=== PATIENT | female | born 1970 | race American Indian/Alaskan Native ===

== ENCOUNTER 2021-04-26 15:40 | Emergency (ER) | payer BC ==
[2021-04-26] MEDS ORDERED: MORPHINE 4 MG/1 ML INJ IV ONE (15:56)
[2021-04-26] MEDS ORDERED: SODIUM CHLORIDE 0.9% 1000 ML 1,000 ML IV ONE (15:56)
[2021-04-26] MEDS ORDERED: ONDANSETRON 4 MG/2 ML INJ IV ONE (15:56)
[2021-04-26 16:43] LABS: Basophils % (Auto) 0.5 % (0.0-1.8); Eosinophils % (Auto) 0.1 % (0.0-4.3); Hematocrit 45.9 % (30.3-42.9); Hemoglobin 15.3 gm/dl (10.1-14.3); Lymphocytes % (Auto) 14.5 % (13.4-35.0); Mean Corpuscular HGB Conc 33 % (30-34); Mean Corpuscular Volume 85 fl (79-97); Monocytes # (Auto) 0.4 K/mm3 (0.0-0.8); Monocytes % (Auto) 6.3 % (0.0-7.3); Platelet Count 267 K/mm3 (140-440); Red Blood Count 5.37 M/mm3 (3.65-5.03); Red Cell Distribution Width 15.2 % (13.2-15.2)
[2021-04-26 16:55] LABS: Alanine Aminotransferase 15 units/L (7-56); Blood Urea Nitrogen 9 mg/dL (7-17); Calcium 9.1 mg/dL (8.4-10.2); Hemolysis Index 9
[2021-04-26 17:02] LABS: BUN/Creatinine Ratio 18
--- NOTE | 2021-04-26 18:00 | Cat Scan Report ---
CT abdomen pelvis wo con INDICATION: left sided abd pain, n/v/d. COMPARISON: None TECHNIQUE: Abdominal and pelvic CT exam performed. All CT scans at this location are performed using CT dose reduction for ALARA by means of automated exposure control. FINDINGS: CT ABDOMEN and PELVIS: Lung Bases: No significant abnormality. Liver: Small subcentimeter hypoattenuating hepatic lesions most likely cysts. Biliary: No significant abnormality. Spleen: No significant abnormality. Pancreas: No significant abnormality. Adrenals: No significant abnormality. Kidneys: Nonobstructive right lower pole punctate calculus. Lymphatics: No lymphadenopathy. Vasculature: Mild atherosclerosis. No aneurysm. Bowel: No significant abnormality. Normal appendix. Pelvis: No significant abnormality. Osseous Structures: No aggressive osseous lesion. Moderate quantity symmetric sclerosis involving the iliac endplates of the sacroiliac joints. Additional Findings: None IMPRESSION: 1. No significant abnormality of the abdomen or pelvis. 2. Nonobstructing right lower pole calculus. 3. Sequela of sacroiliitis.. Signer Name: Renny Ren MD Signed: 04/26/2021 5:55 PM Workstation Name: [id number]
--- NOTE | 2021-04-26 18:40 | Emergency Department Report ---
ED N/V/D HPI - General Chief complaint: Abdominal Pain Stated complaint: ABD PAIN X 3 DAYS Time Seen by Provider: 04/26/21 15:56 Source: patient Mode of arrival: Ambulatory Limitations: No Limitations - History of Present Illness Initial comments: Patient is a 50-year-old female presents emergency room complaints of left-sided abdominal pain that began 2 days ago. She has associated nausea, vomiting, diarrhea. She denies any cough, shortness of breath, urinary symptoms, hematochezia, melena, hematemesis. She states that she believes she has had a subjective fever. No past medical history. She has an allergy to IV dye. She has a past abdominal surgical history of partial hysterectomy and ovarian cyst removal. - Related Data Previous Rx's Medication Instructions Recorded Last Taken Type Fluconazole [Diflucan TAB] 150 mg PO ONCE 1 Days #3 tablet 04/26/21 Unknown Rx Promethazine [Phenergan] 25 mg PO Q8HR PRN #10 tab 04/26/21 Unknown Rx cephALEXin [Keflex] 500 mg PO BID 7 Days #14 cap 04/26/21 Unknown Rx Allergies Allergy/AdvReac Type Severity Reaction Status Date / Time Iodinated Contrast Media AdvReac Anaphylaxis Verified 04/26/21 15:50 ED Review of Systems ROS: Stated complaint: ABD PAIN X 3 DAYS Other details as noted in HPI Comment: All other systems reviewed and negative ED Past Medical Hx - Medications Home Medications: Home Medications Medication Instructions Recorded Confirmed Last Taken Type Fluconazole [Diflucan TAB] 150 mg PO ONCE 1 Days #3 tablet 04/26/21 Unknown Rx Promethazine [Phenergan] 25 mg PO Q8HR PRN #10 tab 04/26/21 Unknown Rx cephALEXin [Keflex] 500 mg PO BID 7 Days #14 cap 04/26/21 Unknown Rx ED Physical Exam - General Limitations: No Limitations General appearance: alert, in no apparent distress - Head Head exam: Present: atraumatic, normocephalic - Eye Eye exam: Present: normal appearance - ENT ENT exam: Present: mucous membranes moist - Respiratory Respiratory exam: Present: normal lung sounds bilaterally. Absent: respiratory distress, wheezes, rales, rhonchi, chest wall tenderness, accessory muscle use, decreased breath sounds, prolonged expiratory - Cardiovascular Cardiovascular Exam: Present: regular rate, normal rhythm, normal heart sounds. Absent: systolic murmur, diastolic murmur, rubs, gallop - GI/Abdominal GI/Abdominal exam: Present: soft, tenderness (mild LUQ/LLQ), normal bowel sounds. Absent: distended, guarding, rebound, rigid - Neurological Exam Neurological exam: Present: alert, oriented X3 - Psychiatric Psychiatric exam: Present: normal affect, normal mood - Skin Skin exam: Present: warm, dry, intact ED Course Vital Signs 04/26/21 04/26/21 15:45 18:55 Temperature 99.5 F 99.0 F Pulse Rate 108 H 101 H Respiratory 19 16 Rate Blood Pressure 133/86 Blood Pressure 126/81 [Right] O2 Sat by Pulse 95 100 Oximetry ED Medical Decision Making - Lab Data Result diagrams: 04/26/21 16:05 04/26/21 16:05 Lab Results 04/26/21 04/26/21 04/26/21 Range/Units 16:05 16:05 18:20 WBC 6.8 (4.5-11.0) K/mm3 RBC 5.37 H (3.65-5.03) M/mm3 Hgb 15.3 H (10.1-14.3) gm/dl Hct 45.9 H (30.3-42.9) % MCV 85 (79-97) fl MCH 29 (28-32) pg MCHC 33 (30-34) % RDW 15.2 (13.2-15.2) % Plt Count 267 (140-440) K/mm3 Lymph % (Auto) 14.5 (13.4-35.0) % [place] % (Auto) 6.3 (0.0-7.3) % Eos % (Auto) 0.1 (0.0-4.3) % Baso % (Auto) 0.5 (0.0-1.8) % Lymph # (Auto) 1.0 L (1.2-5.4) K/mm3 [place] # (Auto) 0.4 (0.0-0.8) K/mm3 Eos # (Auto) 0.0 (0.0-0.4) K/mm3 Baso # (Auto) 0.0 (0.0-0.1) K/mm3 Seg Neutrophils % 78.6 H (40.0-70.0) % Seg Neutrophils # 5.3 (1.8-7.7) K/mm3 Sodium 138 (137-145) mmol/L Potassium 4.0 (3.6-5.0) mmol/L Chloride 103.1 (98-107) mmol/L Carbon Dioxide 22 (22-30) mmol/L Anion Gap 17 mmol/L BUN 9 (7-17) mg/dL Creatinine 0.5 L (0.6-1.2) mg/dL Estimated GFR > 60 ml/min BUN/Creatinine Ratio 18 % Glucose 119 H (65-100) mg/dL Calcium 9.1 (8.4-10.2) mg/dL Total Bilirubin 0.20 (0.1-1.2) mg/dL AST 14 (5-40) units/L ALT 15 (7-56) units/L Alkaline Phosphatase 89 (35-129) units/L Total Protein 7.6 (6.3-8.2) g/dL Albumin 4.0 (3.9-5) g/dL Albumin/Globulin Ratio 1.1 % Lipase 16 (13-60) units/L Urine Color Yellow (Yellow) Urine Turbidity Turbid (Clear) Urine pH 5.0 (5.0-7.0) Ur Specific [place] 1.025 (1.003-1.030) Urine Protein 30 mg/dl (Negative) mg/dL Urine Glucose (UA) Neg (Negative) mg/dL Urine Ketones Neg (Negative) mg/dL Urine Blood Neg (Negative) Urine Nitrite Neg (Negative) Urine Bilirubin Neg (Negative) Urine Urobilinogen < 2.0 (<2.0) mg/dL Ur Leukocyte Esterase Neg (Negative) Urine WBC (Auto) > 182.0 H (0.0-6.0) /HPF Urine RBC (Auto) 65.0 (0.0-6.0) /HPF Urine WBC Clumps 3+ /HPF Urine Mucus 3+ /HPF Urine Yeast (Budding) 2+ /HPF Vital Signs 04/26/21 04/26/21 15:45 18:55 Temperature 99.5 F 99.0 F Pulse Rate 108 H 101 H Respiratory 19 16 Rate Blood Pressure 133/86 Blood Pressure 126/81 [Right] O2 Sat by Pulse 95 100 Oximetry - Radiology Data Radiology results: report reviewed Ordering Physician: CARLOS NOLAND Date of Service: 04/26/21 Procedure(s): CT abdomen pelvis wo con Accession Number(s): [id number] cc: CARLOS NOLAND CT abdomen pelvis wo con INDICATION: left sided abd pain, n/v/d. COMPARISON: None TECHNIQUE: Abdominal and pelvic CT exam performed. All CT scans at this [facility] are performed using CT dose reduction for ALARA by means of automated exposure control. FINDINGS: CT ABDOMEN and PELVIS: Lung Bases: No significant abnormality. Liver: Small subcentimeter hypoattenuating hepatic lesions most likely cysts. Biliary: No significant abnormality. Spleen: No significant abnormality. Pancreas: No significant abnormality. Adrenals: No significant abnormality. Kidneys: Nonobstructive right lower pole punctate calculus. Lymphatics: No lymphadenopathy. Vasculature: Mild atherosclerosis. No aneurysm. Bowel: No significant abnormality. Normal appendix. Pelvis: No significant abnormality. Osseous Structures: No aggressive osseous lesion. Moderate quantity symmetric sclerosis involving the iliac endplates of the sacroiliac joints. Additional Findings: None IMPRESSION: 1. No significant abnormality of the abdomen or pelvis. 2. Nonobstructing right lower pole calculus. 3. Sequela of sacroiliitis.. Signer Name: Renny Ren MD Signed: 04/26/2021 5:55 PM Workstation Name: [id number] Transcribed By: CS Dictated By: Renny Ren MD Electronically Authenticated By: Renny Ren MD Signed Date/Time: 04/26/211754 DD/ 48 TD/TT: - Medical Decision Making Patient is a 50-year-old female presents emergency room complaints of left-sided abdominal pain that began 2 days ago. She has associated nausea, vomiting, diarrhea. She denies any cough, shortness of breath, urinary symptoms, hematochezia, melena, hematemesis. She states that she believes she has had a subjective fever. No past medical history. She has an allergy to IV dye. She has a past abdominal surgical history of partial hysterectomy and ovarian cyst removal. On exam patient has mild left upper quadrant and left lower quadrant tenderness, no guarding, no rebound, no rigidity, no peritoneal signs. Labs are stable. UA shows evidence of significant UTI. CT abdomen pelvis with IV contrast: 1. No significant abnormality of the abdomen or pelvis. 2. Nonobstructing right lower pole calculus. 3. Sequela of sacroiliitis. Patient given medications while in the emergency department with improvement of her symptoms. Discussed the importance of outpatient follow-up and strict return precautions. Given prescription for medication. Advised patient please take medication as prescribed. Increase your fluid intake. Eat a bland liquid diet and slowly advance her diet as tolerated. Follow-up with your primary care doctor for reexamination and to have your urine retested for clearance of bacteria. Return to emergency room immediately for any new or worsening symptoms. Critical care attestation.: If time is entered above; I have spent that time in minutes in the direct care of this critically ill patient, excluding procedure time. ED Disposition Clinical Impression: Yeast infection, Nausea vomiting and diarrhea Abdominal pain Qualifiers: Abdominal location: left lower quadrant Qualified Code(s): R10.32 - Left lower quadrant pain UTI (urinary tract infection) Qualifiers: Urinary tract infection type: acute cystitis Hematuria presence: with hematuria Qualified Code(s): N30.01 - Acute cystitis with hematuria Disposition: HOME / SELF CARE / HOMELESS Is pt being admited?: No Does the pt Need Aspirin: No Condition: Stable Instructions: Urinary Tract Infection, Adult, Probiotics, Abdominal Pain (ED) Additional Instructions: please take medication as prescribed. Increase your fluid intake. Eat a bland liquid diet and slowly advance her diet as tolerated. Follow-up with your primary care doctor for reexamination and to have your urine retested for clearance of bacteria. Return to emergency room immediately for any new or worsening symptoms. Prescriptions: Fluconazole [Diflucan TAB] 150 mg PO ONCE 1 Days #3 tablet cephALEXin [Keflex] 500 mg PO BID 7 Days #14 cap Promethazine [Phenergan] 25 mg PO Q8HR PRN #10 tab PRN Reason: Nausea Referrals: JEMMA ESTRELLA MD [Staff Physician] - 3-5 Days [facility] [Provider Group] - 3-5 Days Time of Disposition: 19:24 Print Language: SERBIAN
[2021-04-26 18:59] VITALS: BP 126/81
[2021-04-26 19:07] LABS: Bilirubin,Urine NEG (Negative); Blood,Urine NEG (Negative); Color,Urine Yellow (Yellow); Mucus,Urine 3+ /HPF; Urobilinogen,Urine < 2.0 mg/dL (<2.0)
[2021-04-26 19:09] LABS: WBC,Urine > 182.0 /HPF (0.0-6.0)
[2021-04-26] MEDS ORDERED: cefTRIAXone/NS 1 GM/50 ML 1 GM/50 ML BAG IV ONE (19:14)
== END 2021-04-26 19:20 | disposition home or self-care (01) ==
LOC: ED 15:40
DX: N39.0 Urinary tract infection, site not specified (principal); B37.9 Candidiasis, unspecified; R10.9 Unspecified abdominal pain; R11.2 Nausea with vomiting, unspecified; Z91.041 Radiographic dye allergy status
CPT/HCPCS: 36415; 74176; 80053; 81001; 83690; 85025; 96361; 96365; 96375; 99284; J0696; J2270; J2405; J7030; 99283